=== PATIENT | male | born 1995 | race Hispanic/Latino ===

== ENCOUNTER 2019-01-01 06:50 | Observation (INO) | payer BC ==
[2018-12-30 14:42] LABS: BASOPHILS # (AUTO) 0.1 (0.0-0.1); BASOPHILS % 0.6 % (0.0-1.0); EOSINOPHILS # (AUTO) 0.4 (0.0-0.4); EOSINOPHILS % 4.5 % (0.0-6.0); HEMATOCRIT 44.5 % (38.2-49.6); HEMOGLOBIN 14.9 g/dL (14.0-18.0); LYMPHOCYTES # (AUTO) 2.2 (1.0-3.2); LYMPHOCYTES % 22.2 % (18.0-39.1); MEAN CORPUSCULAR HEMOGLOBIN 28.6 pg (28-32); MEAN CORPUSCULAR HGB CONC 33.5 g/dL (31-35); MEAN CORPUSCULAR VOLUME 85.4 fL (81-99); MONOCYTES % 10.2 % (4.4-11.3); NEUTROPHILS % 61.5 % (38.7-80.0); PLATELET COUNT 394 x10e3/uL (140-360); RED BLOOD COUNT 5.21 x10e6/uL (4.3-5.7); RED CELL DISTRIBUTION WIDTH 12.3 % (11.7-14.4)
[2018-12-30 15:01] LABS: ALANINE AMINOTRANSFERASE 57 IU/L (0-55); ALBUMIN 3.6 g/dL (3.5-5.0); ALBUMIN/GLOBULIN RATIO 0.9 (0.8-2.0); ALKALINE PHOSPHATASE 139 IU/L (40-150); ANION GAP 16.7 mmol/L (8-16); BLOOD UREA NITROGEN 12 mg/dL (7-26); BUN/CREATININE RATIO 12 (6-25); CALCIUM 9.9 mg/dL (8.4-10.2); CARBON DIOXIDE 26 mmol/L (22-29); CHLORIDE 98 mmol/L (98-107); EST GLOMERULAR FILTRATION RATE > 60 ML/MIN (60-); GLUCOSE 73 mg/dL (74-118); POTASSIUM 3.7 mmol/L (3.5-5.1); SODIUM 137 mmol/L (136-145)
[~2019-01-01] VITALS: Ht 162.6 cm; Wt 101.2 kg
[~2019-01-01 06:50] MED LIST: CRESTOR10 MG PO; DICYCLOMINE HCL20 MG PO; LEVAQUIN500 MG PO; OMEPRAZOLE40 MG PEG; PROPRANOLOL HCL10 MG PO; ULTRAM50 MG PO; VASCEPA1 GM PO; VITAMIN D1000 UNI1 PO
--- OUTSIDE RECORDS SUMMARY | 2019-01-01 06:54 | XMS REPORT ---
Author Author [facility] Address Unknown Phone Unavailable Care Team Providers Care Geomagnetist Name Role Phone Unavailable Unavailable Problems This patient has no known problems. Allergies, Adverse Reactions, Alerts This patient has no known allergies or adverse reactions. Medications This patient has no known medications. Encounters Start Date/Time End Date/Time Encounter Type Admission Type Attending [facility] Facility Care Department Encounter ID 2018-12-22 19:25:00 2018-12-22 19:25:00 Emergency [id number]
--- NOTE | 2019-01-01 07:10 | NUR ---
SPIRITUAL CARE - Pre-Surgery Assessment: Pt in bed. Pt reported supportive attention from family and friends. Intervention: I provided pastoral presence, hospitality, and sympathetic listening. I acquainted pt with availability of per diem rn while hospitalized. Outcome: Pt expressed appreciation for visit. No need for follow up indicated at this time. MARC Woodwardlain Spiritual Care Department O: [phone] Pager: [phone] ([phone] number calling from)
[2019-01-01] MEDS ORDERED: BUPIVACAINE 0.25%/EPI 30ML SDV INJ ONE ×2 (07:14→08:39)
[2019-01-01] MEDS ORDERED: IBUPROFEN 800MG/ 250ML 250 ML IV ONE (09:34)
[2019-01-01] MEDS ORDERED: SUGAMMADEX SODIUM 200 MG/2 ML VIAL IV ONE (10:03)
[2019-01-01] MEDS ORDERED: HYDROMORPHONE 1MG/1ML INJ ONE (10:14)
[2019-01-01] MEDS ORDERED: ONDANSETRON HCL INJ 2MG/ML 2ML 2 MG/ML VIAL IV PRN (12:15)
[2019-01-01] MEDS ORDERED: HYDROMORPHONE 1MG/1ML INJ IV PRN (12:15)
--- NOTE | 2019-01-01 13:15 | Operative Report ---
DATE OF PROCEDURE: 01/01/2019 SURGEON: Mango Card MD PREOPERATIVE DIAGNOSIS: Acute cholecystitis. POSTOPERATIVE DIAGNOSES: 1. [id number] cholecystitis. 2. Morbid obesity with hypertension, high cholesterol and high triglycerides. PROCEDURE PERFORMED: Laparoscopic cholecystectomy. ANESTHESIA: General. ESTIMATED BLOOD LOSS: Minimal. DRAINS: 10-mm flat Dimitrios-Tirado drain. TAXI DRIVER: RUY London INDICATIONS AND FINDINGS: The patient is a 23-year-old male, admitted because of right upper quadrant pain for several days. Ultrasound of the gallbladder was found. On ultrasound, he had normal ducts, no history of jaundice. INTRAOPERATIVE FINDINGS: The patient had idzil-rv-[id number] cholecystitis with severe inflammatory changes in the area of the hepatoduodenal ligament with multiple adhesions of the gallbladder to the omentum. The gallbladder was thickened and distended. We were able to after lysing some adhesions identify the anatomy. We were able to identify the cystic duct, the cystic artery, and a plate of the liver as well as the common bile duct, and at that point, we transected the cystic duct and the cystic artery. A 10-mm flat Dimitrios-Tirado drain was placed. DESCRIPTION OF PROCEDURE: With the patient lying on the operative table in the supine position after administration of general anesthesia, he was prepped and draped for laparoscopic cholecystectomy. The procedure was begun by establishing the pneumoperitoneum in the right upper quadrant midclavicular line because of large size of the patient, and then we created a pneumoperitoneum to 15 mm of pressure after we performed a saline drop test. After insufflation of the pneumoperitoneum to 15 mm of pressure, we went ahead and introduced the 5 mm trocar in that location and then placed 11/12 trocar in the umbilical site. After we did that, we went ahead and placed a right anterior axillary line trocar. Finally, we had to place a 5 mm trocar in the left upper quadrant because of his difficult anatomy and the acuteness of the situation. We started the procedure by lysing the adhesions of the omentum to the gallbladder. After we did that, we exposed the neck of the gallbladder. There was significant induration and inflammation in that area, but we were able to expose the neck of the gallbladder and then began the dissection carefully beginning posteriorly on the neck of the gallbladder until we were able to identify the cystic duct. We carefully and methodically continued the dissection. We went ahead and had to clip in order to continue the dissection to expose the cystic duct and the cystic artery. After we did that, the dissection was then continued, it was easier then to find and dissect the cystic duct. We finally found the cystic artery proper, and then at this point after we have clearly seen part of the liver plate, transected the cystic duct with three clips distally, one proximally as well as the cystic artery. After we did that, we then continued the dissection, which was difficult due to the acuteness and inflammation and thickening of the gallbladder wall until we were able to detach the gallbladder from the liver bed and placed it in an Endobag and then removed through the umbilical port. Then, we re-insufflated the pneumoperitoneum and inspected the operative field and there was no bile leak or no bleeding, and then we placed a 10 mm flat Dimitrios-Tirado drain in hepatoduodenal ligament. The gallbladder bed fossa and the entrance of the Jonatan's pouch, brought out through lateral 5 mm trocar in the right anterior axillary line, secured to the abdominal wall with 3-0 silk, connected it to self-suction. After we did that, we then went ahead and closed the wound using 0-Vicryl for the umbilical port, 3-0 Vicryl for the subcutaneous tissue in that location as well as the subxiphoid port and the skin of all the ports was closed using kym except for the umbilicus, it was thus closed using silk. The patient tolerated the procedure well, taken to recovery room in stable condition. MD MARITZA Michele/MODL /[id number] cc: Piotr Turner MD
--- NOTE | 2019-01-01 14:10 | NUR ---
Received patient from PACU, awake, alert and oriented. Respiration even and unlabored without SOB. Post surgical puncture sites on the abdomen dressing clean dry, and intact with ANABELLA drain in placed draining 30 ml of blood. Denies pain at this time. Family members at bedside. Call light in reach.
[2019-01-01 14:34] VITALS: BP 166/79
[2019-01-01 14:42] VITALS: BP 166/79
[2019-01-01] MEDS: DEXTROSE 5%/LACTATED RINGERS 1,000 ML IV SCH ×2 (14:46→21:47)
[2019-01-01] MEDS ORDERED: SEVOFLURANE INHAL SOLN 250 ML PEN BTL ONE (15:19)
[2019-01-01] MEDS ORDERED: ROCURONIUM BROMIDE 10 MG/ML 5ML VIAL ONE (15:19)
[2019-01-01] MEDS ORDERED: DEXAMETHASONE SOD PHOS INJ 4 MG/ML VIAL ONE (15:19)
[2019-01-01] MEDS ORDERED: GLYCOPYRROLATE INJ 1MG/ 5 ML SYR ONE (15:19)
[2019-01-01] MEDS ORDERED: ONDANSETRON HCL INJ 2MG/ML 2ML 2 MG/ML VIAL ONE (15:19)
[2019-01-01] MEDS ORDERED: PROPOFOL IV EMULSION 10 MG/ML 20 ML VIAL ONE (15:19)
[2019-01-01] MEDS ORDERED: CEFAZOLIN SOD 1 GM VIAL ONE (15:19)
[2019-01-01] MEDS ORDERED: NEOSTIGMINE 5 MG/5ML SYR ONE (15:19)
[2019-01-01] MEDS ORDERED: LIDOCAINE HCL 2% LOCAL INJ 5 ML SDV VIAL INJ ONE (15:19)
[2019-01-01] MEDS ORDERED: MIDAZOLAM HCL 2 MG/2 ML VIAL ONE (15:34)
[2019-01-01] MEDS ORDERED: KETAMINE HCL INJ 50 MG/ML 10 ML VIAL ONE (15:34)
[2019-01-01] MEDS ORDERED: FENTANYL CITRATE/PF 100MCG/2 ML INJ ONE (15:34)
[2019-01-01] MEDS: CEFTRIAXONE SOD 2 GM/NS 100 ML 100 ML IV SCH (15:48)
[2019-01-01 16:49] VITALS: BP 166/79
[2019-01-01] MEDS: PROPRANOLOL HCL 10 MG TAB PO SCH (17:08)
[2019-01-01] MEDS: PANTOPRAZOLE 40 MG 10ML VIAL IV SCH (17:08)
--- NOTE | 2019-01-01 19:16 | NUR ---
Report given to warehouse supervisor 3rd shift. Respiration even and unlabored without SOB. Call light in reach.
--- NOTE | 2019-01-01 20:02 | NUR ---
ROUNDS DONE WITH AM NURSE, PATIENT RESTING IN BED, NO COMPLAINTS VOICED. CALL LIGHT IN REACH. WILL CONTINUE TO MONITOR. FAMILY AT THE BEDSIDE.
[2019-01-01 20:22] VITALS: BP 120/63
[2019-01-02] VITALS (11 sets, daily range): BP systolic 114–140; BP diastolic 58–86
--- NOTE | 2019-01-02 04:13 | NUR ---
CONTINUE RESTING, NO COMPLAINTS OF PAIN. IV INFUSING. CALL LIGHT IN REACH. FAMILY AT THE BEDSIDE.
[2019-01-02] MEDS: HYDROCODONE/APAP 7.5MG-325MG 1 EA TAB PO PRN ×2 (05:56→18:04)
--- NOTE | 2019-01-02 07:05 | NUR ---
ROUNDS DONE WITH AM NURSE, PATIENT CONTINUE RESTING, NO DISTRESS NOTED, IV INFUSING. FAMILY REMAIN AT THE BEDSIDE. CALL LIGHT IN REACH.
[2019-01-02 08:04] LABS: BASOPHILS # (AUTO) 0.1 (0.0-0.1); BASOPHILS % 0.4 % (0.0-1.0); EOSINOPHILS % 0.2 % (0.0-6.0); HEMATOCRIT 35.7 % (38.2-49.6); HEMOGLOBIN 12.2 g/dL (14.0-18.0); LYMPHOCYTES # (AUTO) 2.2 (1.0-3.2); LYMPHOCYTES % 17.5 % (18.0-39.1); MEAN CORPUSCULAR HEMOGLOBIN 28.4 pg (28-32); MEAN CORPUSCULAR HGB CONC 34.2 g/dL (31-35); MEAN CORPUSCULAR VOLUME 83.2 fL (81-99); MONOCYTES # (AUTO) 1.1 (0.2-0.8); MONOCYTES % 8.8 % (4.4-11.3); NEUTROPHILS % 72.5 % (38.7-80.0); PLATELET COUNT 336 x10e3/uL (140-360); RED BLOOD COUNT 4.29 x10e6/uL (4.3-5.7); RED CELL DISTRIBUTION WIDTH 12.1 % (11.7-14.4)
[2019-01-02] MEDS: DEXTROSE 5%/LACTATED RINGERS 1,000 ML IV SCH ×2 (08:08→08:30)
[2019-01-02 08:23] LABS: ALANINE AMINOTRANSFERASE 53 IU/L (0-55); ALBUMIN 3.1 g/dL (3.5-5.0); ALKALINE PHOSPHATASE 105 IU/L (40-150); ANION GAP 9.9 mmol/L (8-16); BLOOD UREA NITROGEN 7 mg/dL (7-26); BUN/CREATININE RATIO 9 (6-25); CALCIUM 9.2 mg/dL (8.4-10.2); CARBON DIOXIDE 29 mmol/L (22-29); CHLORIDE 101 mmol/L (98-107); CREATININE, SERUM 0.77 mg/dL (0.72-1.25); EST GLOMERULAR FILTRATION RATE > 60 ML/MIN (60-); GLUCOSE 109 mg/dL (74-118); POTASSIUM 3.9 mmol/L (3.5-5.1); SODIUM 136 mmol/L (136-145)
[2019-01-02] MEDS: PROPRANOLOL HCL 10 MG TAB PO SCH ×2 (09:00→17:03)
[2019-01-02] MEDS: PANTOPRAZOLE 40 MG 10ML VIAL IV SCH (09:00)
--- NOTE | 2019-01-02 09:30 | NUR ---
Initial assessment completed and the pt. was instructed to walk in the hallway. The graham drain output is dark red and minimal.
[2019-01-02] MEDS: CEFTRIAXONE SOD 2 GM/NS 100 ML 100 ML IV SCH (15:00)
--- NOTE | 2019-01-02 20:45 | NUR ---
PATIENT IS AOX4, NO SIGNS OF DISTRESS NOTED. FAMILY MEMBERS ARE AT BEDSIDE AND PATIENT VOICED PAIN AT A LEVEL OF 2 AND WAS PREVIOUSLY MEDICATED BY DAY NURSE. PATIENT IS RELAXING IN CHAIR, IV PUMP IS RUNNING AT ORDERED RATE AND FLOWING. WILL CONTINUE TO MONITOR.
[2019-01-03] MEDS: DEXTROSE 5%/LACTATED RINGERS 1,000 ML IV SCH (02:15)
[2019-01-03 04:00] VITALS: BP 115/68
[2019-01-03 08:05] VITALS: BP 128/72
[2019-01-03 08:37] LABS: BASOPHILS # (AUTO) 0.1 (0.0-0.1); BASOPHILS % 0.6 % (0.0-1.0); EOSINOPHILS # (AUTO) 0.2 (0.0-0.4); EOSINOPHILS % 1.8 % (0.0-6.0); HEMATOCRIT 39.5 % (38.2-49.6); HEMOGLOBIN 13.7 g/dL (14.0-18.0); LYMPHOCYTES % 20.7 % (18.0-39.1); MEAN CORPUSCULAR HEMOGLOBIN 29.1 pg (28-32); MEAN CORPUSCULAR HGB CONC 34.7 g/dL (31-35); MEAN CORPUSCULAR VOLUME 83.9 fL (81-99); MONOCYTES # (AUTO) 0.4 (0.2-0.8); MONOCYTES % 3.7 % (4.4-11.3); NEUTROPHILS % 72.3 % (38.7-80.0); PLATELET COUNT 357 x10e3/uL (140-360); RED BLOOD COUNT 4.71 x10e6/uL (4.3-5.7); RED CELL DISTRIBUTION WIDTH 12.1 % (11.7-14.4)
[2019-01-03 09:01] VITALS: BP 128/72
[2019-01-03 09:01] LABS: ALANINE AMINOTRANSFERASE 52 IU/L (0-55); ALBUMIN 3.5 g/dL (3.5-5.0); ALKALINE PHOSPHATASE 112 IU/L (40-150); ANION GAP 13.1 mmol/L (8-16); BLOOD UREA NITROGEN 6 mg/dL (7-26); BUN/CREATININE RATIO 8 (6-25); CARBON DIOXIDE 29 mmol/L (22-29); CHLORIDE 98 mmol/L (98-107); CREATININE, SERUM 0.75 mg/dL (0.72-1.25); EST GLOMERULAR FILTRATION RATE > 60 ML/MIN (60-); GLUCOSE 122 mg/dL (74-118); POTASSIUM 4.1 mmol/L (3.5-5.1); SODIUM 136 mmol/L (136-145)
--- NOTE | 2019-01-03 09:30 | NUR ---
received report from Tova RN; pt sitting up in chair, no signs of distress, family at bedside; will continue to monitor.
[2019-01-03] MEDS: PROPRANOLOL HCL 10 MG TAB PO SCH (09:42)
[2019-01-03] MEDS: PANTOPRAZOLE 40 MG 10ML VIAL IV SCH (09:45)
--- NOTE | 2019-01-03 11:15 | NUR ---
pt ambulating around the unit, no signs of distress; will continue to monitor.
[2019-01-03 12:08] VITALS: BP 142/81
--- NOTE | 2019-01-03 14:45 | NUR ---
Visit made by the Spiritual Care Department Pastoral Visitor, Hayden Mccain. PV provided pastoral presence, hospitality, and supportive listening. Pastoral Visitor informed pt/family of the scope of [employer] and availability. MARC CADENA Cat Cracker Operator Spiritual Care Department O: [phone] Pager: [phone] ([phone] number calling from)
== END 2019-01-03 15:25 | disposition home or self-care (01) ==
LOC: OR 06:50 → PACU V 12:12 → MED/SURG 14:01
PROVIDERS: ADMIT Surgery; ATTEND Surgery
DX: K80.10 Calculus of gallbladder with chronic cholecystitis without obstruction (principal); Z91.013 Allergy to seafood; I10 Essential (primary) hypertension; E78.00 Pure hypercholesterolemia, unspecified; E78.1 Pure hyperglyceridemia; Z01.810 Encounter for preprocedural cardiovascular examination; Z01.812 Encounter for preprocedural laboratory examination; K80.12 Calculus of gallbladder with acute and chronic cholecystitis without obstruction; K82.8 Other specified diseases of gallbladder
CPT/HCPCS: 36415 ×3; 47562; 80053 ×3; 85025 ×3; 88304; 93005; C1766; C9113 ×3; G0378 ×3; J0690; J0696 ×3; J1100; J1170 ×2; J2001; J2250; J2405; J2704; J3010; J3490; J7121 ×3

== ENCOUNTER 2022-04-03 19:21 | Emergency (ER) | payer BC, OTHER ==
[~2022-04-03] VITALS: Ht 162.6 cm; Wt 101.2 kg
[2022-04-03] MEDS ORDERED: CYCLOBENZAPRINE5 MG PO (21:50)
== END 2022-04-03 22:05 | disposition home or self-care (01) ==
LOC: FSED 19:25
DX: R07.89 Other chest pain (principal); I10 Essential (primary) hypertension; E78.5 Hyperlipidemia, unspecified; K21.9 Gastro-esophageal reflux disease without esophagitis
CPT/HCPCS: 71045; 80053; 82553; 84484; 93005; 99283